=== PATIENT | male | born 1965 | race Caucasian/White ===

== ENCOUNTER 2017-11-27 10:34 | Emergency (ER) | payer OTHER, MEDICARE ==
[~2017-11-27] VITALS: Ht 180.3 cm; Wt 113.4 kg
[~2017-11-27 10:34] MED LIST: ACETAMINOPHEN-1 EAC3 PO; AZITHROMYCIN250 MG PO; BENZONATATE200 MG PO; CYCLOBENZAPRINE5 M2 PO; ESCITALOPRAM10 MG PO; FISH OIL CONC1000 M1 PO; LEVOTHYROXINE0.2 M2 PO; LEVOTHYROXINE150 MCG PO; LEXAPRO20 M1 PO; MEDROL DOSEPAK1 PAC PO; METAXALONE800 MG PO; OXYCODONE HCL10 M2 PO; OXYCODONE5 MG PO; OXYCONTIN15 M1 PO; PROVENTIL0.09 MG/A1 INH; ZANAFLEX CAPSULE4 MG PO
--- NOTE | 2017-11-27 11:14 | ED ANIMAL BITE/WOUND CHECK ---
History of Present Illness General Chief Complaint: Animal/Insect Bite Stated Complaint: DOG BITE AT WORK Source: patient Exam Limitations: no limitations Vital Signs & Intake/Output Vital Signs & Intake/Output Vital Signs Date Time Temp Pulse Resp B/P B/P Pulse O2 O2 Flow FiO2 Mean Ox Delivery Rate 11/27 1159 97.0 99 18 158/79 99 Room Air 11/27 1045 96.9 18 Room Air ED Intake and Output 11/28 0000 11/27 1200 Intake Total Output Total Balance Patient 250 lb Weight Weight Reported by Patient Measurement Method Allergies Coded Allergies: NO KNOWN ALLERGIES (NONE 11/27/17) Reconcile Medications Acetaminophen With Codeine (Acetaminophen-Cod #3 Tablet) 1 EACH TABLET 1 TAB PO Q8H PRN PAIN (Reported) Amoxicillin/Potassium Clav (Augmentin 875-125 Tablet) 875 MG-125 MG TABLET 1 TAB PO BID DOG BTE Cyclobenzaprine HCl 5 MG TABLET 1 TAB PO TID PRN MUSCLE SPASMS (Reported) Escitalopram Oxalate (Lexapro) 20 MG TABLET 1 TAB PO DAILY MENTAL HEALTH ( Reported) Ibuprofen 800 MG TABLET 1 TAB PO TID PRN PAIN/SWELLING Levothyroxine Sodium 150 MCG TABLET 1 TAB PO DAILY AC THYROID (Reported) [place]-3 Fatty Acids (Fish Oil Concentrate) 1,000 MG CAPSULE 1 CAP PO BID SUPPLEMENT (Reported) Oxycodone HCl (Oxycontin) 15 MG TAB.ER.12H 1 TAB PO DAILY PAIN (Reported) Oxycodone HCl 10 MG TABLET 1 TAB PO Q6-PRN PRN PAIN (Reported) Triage Note: 52 FOREARM. STATES HE WAS BREAKING UP FIGHT BETWEEN TWO DOGS AND HE GOT BIT MULTIPLE TIMES. APPROX 10-12 PUNCTURE WOUNDS NOTED TO R FOREARM. NO ACTIVE BLEEDING AT SITES. PT STATES HIS LAST TETANUS WAS "MAYBE WITHIN 5 YEARS". STATES BOTH DOGS ARE UTD WITH VACCINES, INCLUDING RABIES. DENIES THIS BEING WORKMANS COMP. TELFA AND WRAP PLACED ON ARM. Triage Nurses Notes Reviewed? yes Onset: Abrupt Duration: hour(s): (2), constant, continues in ED Timing: single episode today Injury Environment: home Is Injury an Animal Bite? Yes Animal Type: dog Context of Animal Attack: animals fighting Appearance of Animal: appeared well Animal Immunization Status: up to date Observation/Capture: animal known/obs x10 days Severity of Attack: bitten Severity: mild, moderate No Modifying Factors: none HPI: 52-year-old male history of migraine headaches disc herniation present for evaluation of dog bite to his left forearm. Patient states she was breaking up a dogfight when a dog bit his forearm. He has multiple puncture wounds the forearm. He reports pain in this area along with some numbness in his hand. Unsure of his last tetanus. No other injuries. The dogs are known and are up- to-date on all vaccines. (Vamshi Jones) Past History Travel History Traveled to [place] past 21 day No Medical History Any Pertinent Medical History? see below for history Neurological: migraine EENT: NONE Cardiovascular: NONE Respiratory: pneumonia Gastrointestinal: NONE Hepatic: NONE Renal: NONE Musculoskeletal: disk herniation, NECK FUSION SURGERY Psychiatric: anxiety Endocrine: hypothyroidism Blood Disorders: NONE Cancer(s): NONE SETTER INDUCTION HEATING EQUIPMENT/Reproductive: NONE Surgical History Surgical History: non-contributory Psychosocial History What is your primary language Burkin[place] Tobacco Use: Quit >30 days ago Family History Hx Contributory? No (Vamshi Jones) Review of Systems Review of Systems Constitutional: Reports: no symptoms. EENTM: Reports: no symptoms. Respiratory: Reports: no symptoms. Cardiovascular: Reports: no symptoms. GI: Reports: no symptoms. Genitourinary: Reports: no symptoms. Musculoskeletal: Reports: no symptoms. Skin: Reports: see HPI (puncture wounds). Neurological/Psychological: Reports: no symptoms. Hematologic/Endocrine: Reports: no symptoms. Immunologic/Allergic: Reports: no symptoms. All Other Systems: Reviewed and Negative (Vamshi Jones) Physical Exam Physical Exam General Appearance: well developed/nourished, no apparent distress, alert, awake Head: atraumatic, normal appearance Eyes: Bilateral: normal appearance, EOMI. Ears, Nose, Throat: hearing grossly normal Neck: normal inspection, supple, full range of motion Respiratory: no respiratory distress Peripheral Pulses: 2+ radial (R), 2+ radial (L) Back: normal inspection, normal range of motion Extremities: there are multiple puncture wounds to the left forearm. There are 3 larger lacerations each about 1.5 cm with subcutaneous tissue visible there is active bleeding full range of motion intact Neurologic/Psych: no motor/sensory deficits, awake, alert, oriented x 3, normal gait, normal mood/affect Skin: intact, normal color, warm/dry (Vamshi Jones) Progress Differential Diagnosis: abscess, cellulitis, joint infection, tenosysnovitis Plan of Care: Patient is after dog bite. He has multiple puncture and severe left forearm. No evidence of foreign bodies. Full range of motion is intact. 3 of the lacerations are large and require sutures. The arm was cleaned with Betadine. One percent lidocaine was applied to the wounds. Patient peroxide and sterile water used to flush each puncture wound. 5-0 proline sutures were used to approximate the larger wounds. Discussed wound care procedures in detail. A sterile dressing was applied. Patient was covered with Augmentin. Tylenol at appropriate for pain. Discussed with patient at the importance of good wound care and monitoring for signs of infection. Follow-up in 2 or 3 days for wound check. Sutures out in 7 days. pt agrees with plan (Vamshi Jones) Departure Departure Disposition: HOME OR SELF CARE Condition: Stable Clinical Impression Primary Impression: Dog bite Qualifiers: Encounter type: initial encounter Qualified Code: W54.0XXA - Bitten by dog, initial encounter Referrals: Jose Cardozo MD (PCP/Family) Additional Instructions: Keep the area clean and dry. Change dressing once daily. [place] for signs of infection like redness swelling discharge or pain. Take antibiotics for the full course. Follow up in 2 or 3 days for wound check. The stitches come out in 7-10 days. It is extremely important that you play close attention to this wound IT is at high risk of infection. Departure Forms: Customer Survey General Discharge Information Prescriptions: Current Visit Scripts Amoxicillin/Potassium Clav (Augmentin 875-125 Tablet) 1 TAB PO BID #20 TAB Ibuprofen 1 TAB PO TID PRN PAIN/SWELLING #30 TAB (Vamshi Jones) PA/[employer] HEL[employer] Co-Sign Statement Statement: ED Attending supervision documentation- [] I saw and evaluated the patient. I have also reviewed all the pertinent lab results and diagnostic results. I agree with the findings and the plan of care as documented in the PA's/[employer] SERVIC[employer] HELPER's documentation. [X] I have reviewed the ED Record and agree with the PA's/[employer] SERVIC[employer] HELPER's documentation. [] Additions or exceptions (if any) to the PAs/[employer] SERVICER HELPER's note and plan are summarized below: [] (Chetan Jennings DO
[2017-11-27] MEDS ORDERED: AUGMENTIN 875-1 EACH PO (11:54)
[2017-11-27] MEDS ORDERED: IBUPROFEN800 M1 PO (11:54)
[2017-11-27 11:59] VITALS: BP 158/79
== END 2017-11-27 11:59 ==
LOC: ERH 10:34
DX: S51.852A Open bite of left forearm, initial encounter (principal); W54.0XXA Bitten by dog, initial encounter
CPT/HCPCS: 90471; 90714; J2001